=== PATIENT | male | born 1970 | race Caucasian/White ===

== ENCOUNTER 2023-04-09 02:43 | Inpatient (IN) | payer BC, SELFPAY ==
[2023-04-09 02:46] VITALS: BP 180/98; PULSE 78; O2SAT 98
[2023-04-09 02:48] VITALS: BMI 30.1
[2023-04-09 02:55] VITALS: BP 143/77; PULSE 77; RESP 18; TEMP 36.9; O2SAT 97
--- NOTE | 2023-04-09 03:09 | ED.PSYCH ---
HPI - Psych General Chief Complaint: Psychiatric Symptoms Stated Complaint: section 12 Time Seen by Provider: 04/09/23 03:03 Source: patient and EMS Mode of arrival: EMS Limitations: no limitations History of Present Illness HPI Narrative: Patient comes to the emergency room via EMS from home. Patient was Section 12 by a [facility] clinician. Patient is delusional, paranoid, harassing neighbor's. Patient thinks he is in a texting relationship with the police. Patient states that he is going through divorce, states that his needs psychiatric help, patient upset that the chief of the police and his best friend called an ambulance to make him come to the emergency room. Patient denies SI or HI Related Data Allergies Allergy/AdvReac Type Severity Reaction Status Date / Time No Known Allergies Allergy Verified 04/09/23 02:53 Review of Systems Review of Systems: Constitutional : No Weight loss, No Fever, No Chills, No Night Sweats, No Fatigue, No Malaise ENT/Mouth : No Hearing loss, No Ear Pain, No Nasal Congestion, No Sinus Pain, No Hoarseness, No sore throat, No Rhinorrhea, No Swallowing Difficulty Eyes: No Eye Pain, No Swelling, No Redness, No Foreign Body, No Discharge, No Vision Changes Cardiovascular : No Chest Pain, No SOB, No Dyspnea on Exertion, No Orthopnea, No Edema, No Palpitations Respiratory : No Cough, No Sputum, No Wheezing, No Smoke Exposure, No Dyspnea Gastrointestinal : No Nausea, No Vomiting, No Diarrhea, No Constipation, No abdominal Pain, No Hematochezia, No Melena Genitourinary : no irregular bleeding, No Dysuria, No Urinary Frequency, No Hematuria, No Urinary Incontinence, No Urgency, No Flank Pain, No Urinary Flow Changes, No Hesitancy Musculoskeletal : No joint pain, No Myalgias, No Joint Swelling Skin : No Skin Lesions, No rash Neuro : No Weakness, No Numbness, No Paresthesias, No Loss of Consciousness, No Dizziness, No Headache Psych : Feeling a bit anxious, no SI or HI Heme/Lymph: No Bruising, No Bleeding,No Lymphadenopathy Endocrine : No Polyuria, No Polydipsia, No Temperature Intolerance Physical Exam Vital Signs: Vital Signs: Last Vital Signs Temp 98.5 F 04/09/23 02:55 Pulse 77 04/09/23 02:55 Resp 18 04/09/23 02:55 BP 143/77 H 04/09/23 02:55 Pulse Ox 97 04/09/23 02:55 O2 Del Method Room Air 04/09/23 02:55 BMI result Body Mass Index 30.1 Const: Other: Appearance: Alert. Oriented X3. No acute distress. Eyes: Pupils equal, round and reactive to light. ENT: Pharynx normal. Neck: Normal inspection. Neck supple. No lymph nodes noted. No crepitus CVS: Normal heart rate and rhythm. Pulses normal. Normal S1 and S2 Respiratory: No respiratory distress. Breath sounds normal. No Wheezing. No rales Abdomen: Soft and nontender. No rigidity. No distention. Skin: Skin warm and dry. Normal skin color. Normal skin turgor. Extremities: No lower extremity edema. No Lacerations. No Rash Neuro: Oriented X 3. No motor deficit. No sensory deficit. Moving all extremities. No slurred speech. CN 2 through 12 grossly intact Psych: calm, cooperative, hyperverbal, delusional, paranoid, disorganized speech, talking and repeating himself over and over again Course Course Course Narrative: -patient is on a Section 12 -labs pending -care team consult pending -physician observation started at 03:10 Medical Decision Making Differential Diagnosis Differential Diagnoses: The differential diagnosis associated with the presentation includes (Schizophrenia, bipolar disorder, polysubstance abuse) Admission/Observation Consideration of admission/observation: Escalation of care including admission/observation considered (Patient is on a Section 12 waiting for the care team to determine patient's disposition, likely to be admitted) Discharge Plan Discharge Clinical Impression: Paranoid delusion Patient Disposition: Still a Patient Interventions: Millard-Suicide Risk Severity Scale Last Done: 04/09/23 02:56
[2023-04-09 03:20] LABS: Basophils Absolute Auto 0.1 X10*3/uL (0.0-0.2); Basophils Percent Auto 0.6 % (0-2); Eosinophils Absolute Auto 0.1 X10*3/uL (0.0-0.4); Eosinophils Percent Auto 0.9 % (0-4); Hematocrit 45.2 % (42.0-52.0); Hemoglobin 15.3 g/dl (14.0-18.0); Imm Gran Abs Auto 0.02 X10*3/uL (0.00-0.03); Imm Gran Pct Auto 0.2 % (0.0-0.4); Lymphocytes Absolute Auto 2.3 X10*3/uL (1.2-4.9); Lymphocytes Percent Auto 28.5 % (20-40); MANUAL DIFF FLAG NO; Mean Corpuscular HGB Conc 33.8 g/dl (31.0-36.0); Mean Corpuscular Hemoglobin 30.3 pg (27.0-33.0); Mean Corpuscular Volume 89.5 fL (80.0-98.0); Mean Platelet Volume 9.8 fL (9.4-12.4); Monocytes Absolute Auto 0.7 X10*3/uL (0.1-1.2); Monocytes Percent Auto 8.4 % (2-11); Neutrophils Percent Auto 61.4 % (45-73); Platelet Count 230 X10*3/uL (160-400); Red Blood Count 5.05 X10*6/uL (4.60-5.80); Red Cell Distribution Width 12.5 % (11.0-16.0); White Blood Count 8.1 X10*3/uL (4.8-10.8)
--- OUTSIDE RECORDS SUMMARY | 2023-04-09 03:38 | XMS_ITS | Continuity of Care Document ---
Author Name Unknown Organization [facility] Address [address] [place] [address]- Care Team Providers Care Ruby Rails Developer Name Role Phone Ange Cavanaugh MD Primary Care Physician [phone] Encounter [facility] Date(s): 07/25/22 - 08/24/22 [facility] [address] [place] [address]- Allergies, Adverse Reactions, Alerts No Known Medication Allergies Immunizations Given and Recorded Vaccine Date Status Refusal Reason tetanus/diphtheria/pertussis, acel(Tdap) 09/01/17 Given tetanus/diphtheria/pertussis, acel(Tdap) 05/22/14 Given Not Given Vaccine Date Status Refusal Reason pneumococcal 23-valent vaccine 1 07/29/16 Not Give n Patient Refuses 1Result Note: Med was ordered, but patient states he does not want or need. No medical reason for this med. Medications atorvastatin 10 mg oral tablet 1 tablet = 10 mg, By Mouth, Daily, # 30 tablet, 0 Refills, Maintenance, 07/13/21 22:51:00 EDT, Partial fill upon patient request if the prescription is for a schedule II opioid drug. Start Date: 07/13/21 Status: Ordered fenofibrate 54 mg oral tablet 1 tablet = 54 mg, By Mouth, Daily, 0 Refills, Maintenance, 07/28/16 20:48:45 Start Date: 07/28/16 Status: Ordered FLUoxetine (Eqv-Prozac) 10 mg oral tablet 1 tablet = 10 mg, By Mouth, Daily, 0 Refills, Maintenance, 07/13/21 22:50:00 EDT, Partial fill uponpatient request if the prescription is for a schedule II opioid drug. Start Date: 07/13/21 Status: Ordered PROzac 10 mg oral capsule 10 mg, By Mouth, Daily, # 30 capsule, Refills 5, Tot. Refills 5, Maintenance, 08/11/16 10:17:17, Route to Pharmacy Electronically, [id number], [facility]/pharmacy #[id number] Start Date: 08/11/16 Stop Date: 02/07/17 Status: Ordered Problem List Condition Confirmation Course Effective Dates Status Health St atus Informant Obese class I Confirmed Active Social History Social History Type Response Smoking Status Never smoker entered on: 05/22/14 Sex Patient Care team information Care Team Personnel Name: Afshan Cassidy Position: [facility] Outreach Member Role: Lifetime Consulting Physician Name: Casandra Padilla RN Position: [facility] Nurse Member Role: Primary Care Nurse Name: Dorcas Espinoza MA Position: [facility] MA Member Role: Primary Care Nurse Name: Ange Cavanaugh MD Position: [facility] Outreach Member Role: PCP Address: Address: [address] [place] [address] & [place] [address]- Name: Chary Khan RN Position: [facility] Outreach Member Role: Primary Care Nurse Care Team Related Persons Name: SHERICE LOVE Address: home [address] [place] [address]
--- OUTSIDE RECORDS SUMMARY | 2023-04-09 03:38 | XMS_ITS | Continuity of Care Document ---
Author Name Unknown Organization [facility] Address [address] [place] [address]- Care Team Providers Care Calculation Clerk Name Role Phone Ange Cavanaugh MD Primary Care Physician Encounter [facility] Date(s): 07/13/21 - 07/14/[address] [address]- Discharge Disposition: A-D/C Home Attending Physician: Romain Klein DO Admitting Physician: Romain Klein DO Referring Physician: Not on Staff, Referring MD Allergies, Adverse Reactions, Alerts No Known Medication [...] opioid drug. Start Date: 07/13/21 Status: Ordered LORazepam 1 mg oral tablet 1 tablet = 1 mg, By Mouth, 2 times a day, PRN as needed for anxiety, for 7 days, # 10 tablet, 0 Refills, Acute 07/21/21 3:14:00 EDT, 07/14/21 3:14:00 EDT, Tablet, [facility]/pharmacy #[id number], Partial fill upon patient request if the prescription is for a sched... Start Date: 07/14/21 Stop Date: 07/21/21 Status: Ordered PROzac 10 mg oral capsule 10 mg, By Mouth, Daily, # 30 capsule, Refills 5, Tot. Refills 5, Maintenance, 08/11/16 10:17:17, Route to Pharmacy Electronically, [id number], [facility]/pharmacy #[id number] Start Date: 08/11/16 Stop Date: 02/07/17 Status: Ordered Problem List Condition Effective Dates Status Health Status Inform ant Obese class I(Confirmed) Active Vital Signs Most recent to oldest [Reference Range]: 1 2 3 Height 177 cm (07/14/21 3:35 AM) 177 cm (07/13/21 10:15 PM) 177 cm (07/13/21 10:13 PM) Weight 98.2 kg (07/14/21 3:35 AM) 98.2 kg (07/13/21 10:15 PM) 98.2 kg (07/13/21 10:13 PM) Oxygen Saturation [94-100 %] 100 % (07/14/21 3:35 AM) 95 % (07/13/21 10:13 PM) Pulse Rate [55-90 bpm] 63 bpm (07/14/21 3:35 AM) 68 bpm (07/13/21 10:13 PM) Body Mass Index [18.5-24.99] 31.34 *>HHI* (07/14/21 3:35 AM) 31.34 *>HHI* (07/13/21 10:13 PM) Blood Pressure [90-138/55-84 mm Hg] 183/84mm Hg *H* (07/14/21 3:35 AM) 192/86mm Hg *H* (07/13/21 10:13 PM) Respiratory Rate [16-30 br/min] 18 br/min (07/14/21 3:35 AM) 16 br/min (07/13/21 10:13 PM) Temperature [96.8-100.4 DegF] 97.9 DegF (07/14/21 3:35 AM) 98 DegF (07/13/21 10:13 PM) Mode of Delivery (Oxygen) room air (07/14/21 3:35 AM) Room air (07/13/21 10:13 PM) Blood pressure sites Arm, right (07/14/21 3:35 AM) Arm, right (07/13/21 10:13 PM) Temperature Route Oral (07/14/21 3:35 AM) Oral (07/13/21 10:13 PM) Dry Weight 98.2 kg (07/14/21 3:35 AM) 98.2 kg (07/13/21 10:15 PM) 98.2 kg (07/13/21 10:13 PM) Social History Social History Type Response Smoking Status Never smoker entered on: 05/22/14 Sex
[2023-04-09 03:40] LABS: Alanine Aminotransferase 25 U/L (0-40); Albumin Level 4.4 g/dL (3.5-5.0); Alkaline Phosphatase 96 U/L (39-117); Anion Gap 13 (12-20); Aspartate Amino Transferase 19 U/L (5-37); Bilirubin Direct 0.1 mg/dL (0.0-0.5); Bilirubin Total 0.3 mg/dL (0.0-1.0); Blood Urea Nitrogen 25 mg/dL (9-16); Calcium 9.6 mg/dL (8.4-10.2); Carbon Dioxide 27 mmol/L (22-29); Chloride 107 mmol/L (96-108); Creatinine Clr Calc Pharmacy 105.4; Estimated Glomerular Filt Rate > 60; Ethanol < 10 mg/dL; Glucose Random 136 mg/dL (60-115); Potassium 3.9 mmol/L (3.3-5.1); Sodium 143 mmol/L (135-145); Total Protein 7.3 g/dL (6.5-8.0)
[2023-04-09 04:19] LABS: Amphetamine Screen Urine Not Detected (Not Detect); Barbiturates, Urine Not Detected (Not Detect); Benzodiazepines Screen Urine Not Detected (Not Detect); Cannabinoid Screen Urine Not Detected (Not Detect); Cocaine Screen Urine Not Detected (Not Detect); Fentanyl, urine Not Detected (Not Detect); Opiate Screen Urine Not Detected (Not Detect); Phencyclidine Screen Urine Not Detected (Not Detect)
--- NOTE | 2023-04-09 04:54 | PC.NURSE ---
nad 1:1 sitter at bedside. pt resting comfortably in stretcher.
[2023-04-09 06:40] VITALS: BP 163/70; PULSE 58; RESP 17; TEMP 36.7; O2SAT 96
--- NOTE | 2023-04-09 08:27 | PC.NURSE ---
Assumed care of pt from previous RN, pt resting on stretcher. Pt ate breakfast. Pt continues on 1:1 observation.
--- NOTE | 2023-04-09 09:25 | PC.NURSE ---
Called pt's preferred pharmacy ([facility]), per pharmacy staff, pt does not have any prescriptions on file.
[2023-04-09 09:59] VITALS: BP 161/73; PULSE 72; RESP 20; O2SAT 97
--- NOTE | 2023-04-09 12:32 | PC.NURSE ---
patient is in room, inpt psych team in talking with him, has remained calm and cooperative, no signs of distress.
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
--- NOTE | 2023-04-09 14:33 | PC.NURSE ---
patient is resting in bed, appears to be sleeping, respirations equal and unlabored, able to make needs known.
--- NOTE | 2023-04-09 18:56 | PHA.MEDREC ---
Pharmacy Consult ? Medication Reconciliation Pharmacy has reviewed the medication reconciliation completed by Shivani. Mireille Richey, WilD
[2023-04-09 21:00] VITALS: BP 165/88; PULSE 82; RESP 18; TEMP 36.6; O2SAT 98
--- NOTE | 2023-04-09 23:25 | PC.NURSE ---
t/w asked client if he wanted something for sleep, declined.
[2023-04-09 23:32] VITALS: BP 175/84; PULSE 77; RESP 18; TEMP 36.6; O2SAT 99
--- NOTE | 2023-04-09 23:45 | PC.NURSE ---
belongings getting moved to laundry closet
[2023-04-09] MEDS: LORazepam 1 MG TABLET 2 MG PO (23:54)
--- NOTE | 2023-04-09 23:56 | PC.NURSE ---
patient seems guarded when given ativan (reported bp to provider) mentioned previous stay at [facility] and soon to be ex which unclear to t/w if that is true...pending effect.
--- NOTE | 2023-04-10 | ECG_ITS ---
Test Reason : qtc check Blood Pressure : / mmHG Vent. Rate : 071 BPM Atrial Rate : 071 BPM P-R Int : 164 ms QRS Dur : 148 ms QT Int : 416 ms P-R-T Axes : 005 -12 175 degrees QTc Int : 452 ms Normal sinus rhythm Left bundle branch block Abnormal ECG No previous ECGs available Referred By: Vanessa Simeon Electronically Signed By:DOMINIQUE MILLS
--- NOTE | 2023-04-10 07:37 | PC.NURSE ---
pt awake/alert, ambulating with steady gait throughout the unit, breakfast given, tv turned on per pt request, will obtain vitals and medicate when able.
--- NOTE | 2023-04-10 07:54 | PC.NURSE ---
pt is currently refusing medications
--- NOTE | 2023-04-10 07:55 | PC.NURSE ---
pt requesting lorazepam for sleep at night, pt states he takes 0.5mg at home at night
[2023-04-10 08:59] LABS: COVID-19 Test Negative (Negative); IDNOW Serial# 9DB6401D
--- NOTE | 2023-04-10 09:56 | PC.NURSE ---
called pharmacy to verify medications as pt states he is not on hydrochlorothiazide but pharm states pt is on a combo of lisin/hydrochlor tablet. no si/hi reported. talking well.
[2023-04-10 10:05] VITALS: BP 152/76; PULSE 96; RESP 16; TEMP 36.4; O2SAT 97
[2023-04-10] MEDS: hydroCHLOROthiazide 12.5 MG TABLET PO (10:11)
[2023-04-10] MEDS: Atorvastatin Calcium 10 MG TABLET PO (10:11)
[2023-04-10] MEDS: lisinopriL 10 MG TABLET PO (10:11)
--- NOTE | 2023-04-10 10:14 | PC.NURSE ---
pt reminded needs to give a urine sample- pt states he needs po fluids- given additional po fluids,
--- NOTE | 2023-04-10 11:51 | PC.NURSE ---
pt gave urine- sending to lab
[2023-04-10 12:13] LABS: Appearance Urine Clear; Color Urine Yellow; Glucose Urine UA Negative (Negative); Leukocyte Esterase Urine Negative (Negative); Nitrite Urine Negative (Negative); Urine Blood Negative (Negative); Urine Ketones Negative (Negative); Urine Protein Negative (Neg-Trace)
[2023-04-10 12:15] LABS: Bacteria Urine None Seen (None Seen); Hyaline Casts Urine 0-2 /LPF (0-2); RBC Urine 0-2 /HPF (0-2); Squamous Epithelial Cell Urine 0-2 /HPF (0-2); WBC Urine 0-5 /HPF (0-5)
[2023-04-10 12:17] LABS: Amphetamine Screen Urine Not Detected (Not Detect); Barbiturates, Urine Not Detected (Not Detect); Benzodiazepines Screen Urine Not Detected (Not Detect); Cannabinoid Screen Urine Not Detected (Not Detect); Cocaine Screen Urine Not Detected (Not Detect); Fentanyl, urine Not Detected (Not Detect); Opiate Screen Urine Not Detected (Not Detect); Phencyclidine Screen Urine Not Detected (Not Detect)
[2023-04-10 14:00] VITALS: BP 148/82; PULSE 92; RESP 16; TEMP 36.4; O2SAT 97
--- NOTE | 2023-04-10 15:29 | PC.NURSE ---
report given to floor
--- NOTE | 2023-04-10 16:12 | PC.NURSE ---
pt on way up to floor w all belongings- confirmed visually w pt and staff witness has all of shook/cards/wallet; also has laundry basket, backpack, shoes, other belongings
[2023-04-10 16:45] VITALS: BP 159/81; PULSE 88; RESP 15; TEMP 36.6; O2SAT 97
--- NOTE | 2023-04-10 18:01 | PC.NURSE ---
Addendum entered by Penny Garrett RN 04/13/23 10:44: Pt was admitted on 12b - not CV as previously documented. Original Note: Micky was admitted to at 1645 from [facility] Pod on CV for treatment of mood disorder and psychosis. Precipitant of admission include no sleep x 2 weeks, elevated anxiety and paranoid delusions. On arrival to he is alert, oriented to day, date, time and place but not situation. I am here to deescalate. I don't have any problems. Mood is depressed. Affect is anxious, and irritable. He denies hallucinations He is unable to focus on the admission process requiring repeated redirection to answer assessment questions. He does not appear internally preoccupied. However, speech is hyperverbal, tangential, and pressured. He voices paranoid delusional thought content and ideas of reference. He denies ideation, plan or intent to harm self or others. Appetite is good with no recent wt loss or gain. Pt is a never smoker, never used drugs and does not use alcohol per his report. He has already received the flu shot this season. Medical Issues?include hypertension and high cholesterol. BUN is high and RBS is high from ED labs. He denies physical complaint. He was placed on q 5 minute safety Checks per provider order.
[2023-04-10 19:55] VITALS: BP 150/82; PULSE 100; RESP 18; TEMP 36.2; O2SAT 98
[2023-04-10] MEDS: LORazepam 0.5 MG TABLET PO (22:56)
[2023-04-11 07:30] VITALS: BP 140/65; PULSE 87; RESP 18; TEMP 36.6; O2SAT 96
[2023-04-11 07:40] LABS: Alanine Aminotransferase 26 U/L (0-40); Albumin Level 4.3 g/dL (3.5-5.0); Alkaline Phosphatase 91 U/L (39-117); Anion Gap 13 (12-20); Aspartate Amino Transferase 18 U/L (5-37); Bilirubin Total 0.4 mg/dL (0.0-1.0); Blood Urea Nitrogen 16 mg/dL (9-16); Calcium 9.5 mg/dL (8.4-10.2); Carbon Dioxide 27 mmol/L (22-29); Chloride 104 mmol/L (96-108); Cholesterol 137 mg/dL (<200); Creatinine Clr Calc Pharmacy 113.6; Estimated Glomerular Filt Rate > 60; Glucose Fasting 124 mg/dL (60-99); HDL Cholesterol 40 mg/dL (>40); LDL Cholesterol Calculated 62 mg/dL (<100); Potassium 3.9 mmol/L (3.3-5.1); Sodium 140 mmol/L (135-145); Total Protein 7.1 g/dL (6.5-8.0); Triglycerides 178 mg/dL (<150)
[2023-04-11] MEDS: hydroCHLOROthiazide 12.5 MG TABLET PO (08:43)
[2023-04-11] MEDS: Atorvastatin Calcium 10 MG TABLET PO (08:43)
[2023-04-11] MEDS: lisinopriL 10 MG TABLET PO (08:43)
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
[2023-04-11] MEDS: LORazepam 1 MG TABLET PO ×2 (14:36→21:21)
[2023-04-11 19:35] VITALS: BP 130/76; PULSE 89; RESP 16; TEMP 36.6; O2SAT 96
[2023-04-12] MEDS: LORazepam 1 MG TABLET PO ×2 (06:19→23:28)
[2023-04-12 07:15] VITALS: BP 132/69; PULSE 84; RESP 18; TEMP 36.3; O2SAT 98
[2023-04-12] MEDS: lisinopriL 10 MG TABLET PO (08:25)
[2023-04-12] MEDS: Atorvastatin Calcium 10 MG TABLET PO (08:25)
[2023-04-12] MEDS: hydroCHLOROthiazide 12.5 MG TABLET PO (08:26)
--- NOTE | 2023-04-12 14:09 | HO.PSYCHPN ---
Subjective Subjective Date of Service: 04/12/23 Reason For Visit: Crisis Subjective Notes: Section 12B Interim History: Pt slept from 21:30 to 4:30am with ativan. Pt continues to report he does not need psychiatric treatment and does not see how his behavior including helping neighbor or recent financial decisions are concerning to others. He continues to decline mood stabilizer or antipsychotic. Review of Systems Review of Systems Constitutional : No Weight loss, No Fever, No Chills, No Night Sweats, No Fatigue, No Malaise ENT/Mouth : No Hearing loss, No Ear Pain, No Nasal Congestion, No Sinus Pain, No Hoarseness, No sore throat, No Rhinorrhea, No Swallowing Difficulty Eyes: No Eye Pain, No Swelling, No Redness, No Foreign Body, No Discharge, No Vision Changes Cardiovascular : No Chest Pain, No SOB, No Dyspnea on Exertion, No Orthopnea, No Edema, No Palpitations Respiratory : No Cough, No Sputum, No Wheezing, No Smoke Exposure, No Dyspnea Gastrointestinal : No Nausea, No Vomiting, No Diarrhea, No Constipation, No abdominal Pain, No Hematochezia, No Melena Genitourinary : no irregular bleeding, No Dysuria, No Urinary Frequency, No Hematuria, No Urinary Incontinence, No Urgency, No Flank Pain, No Urinary Flow Changes, No Hesitancy Musculoskeletal : No joint pain, No Myalgias, No Joint Swelling Skin : No Skin Lesions, No rash Neuro : No Weakness, No Numbness, No Paresthesias, No Loss of Consciousness, No Dizziness, No Headache Psych : Feeling a bit anxious, no SI or HI Heme/Lymph: No Bruising, No Bleeding,No Lymphadenopathy Endocrine : No Polyuria, No Polydipsia, No Temperature Intolerance Mental Status Exam Mental Status Exam Narrative: Appearance: wearing casual clothing, good hygiene, in NAD Behavior: guarded, especially when others not agreeing with him Psychomotor: no agitation or retardation noted Speech: hyperverbal, pressured at times, spontaneous TP: disorganized at times difficult to follow TC: wanting to get a divorce and help others Mood: good Affect: expansive SI: denies HI: none VH/AH: none Delusions: more sense of him helping others without insight that he is coming across as intrusive, some paranoid ideas Insight/judgment: impaired x2. memory/cog: alert, oriented x 3. Diagnostics Vital Signs (24Hr): Vital Signs - 24 hr 01/20/24 19:35 04/12/23 07:15 Temperature 97.8 F 97.4 F Pulse Rate 89 84 Respiratory Rate 16 18 Blood Pressure 130/76 132/69 Pulse Oximetry 96 98 Oxygen Delivery Method Room Air Room Air BMI result Body Mass Index 30.1 Labs 04/09/23 03:14 04/11/23 07:13 Labs: Laboratory Results - last 48 hr 04/11/23 07:13 Sodium 140 Potassium 3.9 Chloride 104 Carbon Dioxide 27 Anion Gap 13 BUN 16 Creatinine 0.89 Estim Creat Clear Calc 113.6 Estimated GFR > 60 Fasting Glucose 124 H Calcium 9.5 Total Bilirubin 0.4 AST 18 ALT 26 Alkaline Phosphatase 91 Total Protein 7.1 Albumin 4.3 Triglycerides 178 H Cholesterol 137 LDL Cholesterol, Calc 62 HDL Cholesterol 40 L Medications Medications Current Medications Acetaminophen (Acetaminophen 325 Mg Tablet) 650 mg PO Q6H PRN PRN Reason: Headache/Pain Mild Scale (1-3) Al Hydroxide/Mg Hydroxide (Magnesium Hydrox/Alum Hydrox 30 Ml Oral.Susp) 30 ml PO Q6H PRN PRN Reason: Heartburn/Nausea Atorvastatin Calcium (Atorvastatin Calcium 10 Mg Tablet) 10 mg PO DAILY [facility] Last Admin: 04/12/23 08:25 Dose: 10 mg Hydrochlorothiazide (Hydrochlorothiazide 12.5 Mg Tablet) 12.5 mg PO DAILY [facility]; Protocol Last Admin: 04/12/23 08:26 Dose: 12.5 mg Hydroxyzine HCl (Hydroxyzine Hcl 25 Mg Tablet) 25 mg PO Q6H PRN PRN Reason: Anxiety Lisinopril (Lisinopril 10 Mg Tablet) 10 mg PO DAILY [facility]; Protocol Last Admin: 04/12/23 08:25 Dose: 10 mg Lorazepam (Lorazepam 1 Mg Tablet) 1 mg PO Q6H PRN PRN Reason: anxiety/restlessness Last Admin: 04/12/23 06:19 Dose: 1 mg Magnesium Hydroxide (Milk Of Magnesia 30 Ml Oral.Susp) 30 ml PO DAILY PRN PRN Reason: Constipation Nicotine (Nicotine 21 Mg Patch.Td24) 21 mg TRANSDERMA DAILY [facility] Last Admin: 04/12/23 08:28 Dose: Not Given Nicotine Polacrilex (Nicotine Polacrilex 2 Mg Gum) 4 mg BUCCAL Q2H PRN PRN Reason: Nicotine Cravings Olanzapine (Olanzapine 5 Mg Tablet) 5 mg PO Q4H PRN PRN Reason: Psychosis Trazodone HCl (Trazodone Hcl 50 Mg Tablet) 50 mg PO BEDTIME MRX1 PRN PRN Reason: Insomnia Allergies Allergies Allergy/AdvReac Type Severity Reaction Status Date / Time No Known Allergies Allergy Verified 04/09/23 02:53 Assessment & Plan Assessment & Plan (1) Bipolar disorder with severe maryann: Status: Acute Code(s): F31.13 - Bipolar disorder, current episode manic without psychotic features, severe Plan Mr. Norton is a 52 year-old male with hx of Bipolar Disorder who was brought in after assessment by [facility] in the community. Pt presents as hyperverbal, increase reckless financial decisions, intrusive behaviors which pt perceives as helping others and some paranoia and decreased sleep. Utox is negative. No insight into symptoms or need for psychotropic medications (combination of mood stabilizer and antipsychotic). PLAN 1. continue tx. sect 12b Reason for continued inpatient stay Substantial Risk for: inability to function Time Spent With Patient Time: Total time managing care of this patient today ____ minutes.
[2023-04-12 19:40] VITALS: BP 145/68; PULSE 90; RESP 18; TEMP 36.6; O2SAT 97
[2023-04-13 07:20] VITALS: BP 142/74; PULSE 87; RESP 16; TEMP 36.2; O2SAT 98
[2023-04-13] MEDS: Atorvastatin Calcium 10 MG TABLET PO (08:08)
[2023-04-13] MEDS: hydroCHLOROthiazide 12.5 MG TABLET PO (08:09)
[2023-04-13] MEDS: lisinopriL 10 MG TABLET PO (08:09)
--- NOTE | 2023-04-13 09:27 | HO.PSYCHPN ---
Subjective Subjective Date of Service: 04/13/23 Reason For Visit: Crisis Subjective Notes: Section 12B Interim History: Reviewed with . Keeping to self. Listening to music with unit headphones. Guarded. Circumstantial. Pt reports feeling good today; pt stated, I know people were concerned about me because I wasn't sleeping and sending text messages. I don't think I have bipolar d/o or a mental illness. I have sleep depravation. I know how to meditate. I take some Ativan and I'm fine . Pt reports he is not interested in taking any psychiatric medications or having a therapist . He states not wanting anyone to talk to my parents or because you guys don't need to connect with anyone . Pt denies SI/HI/VH/AH. Pt stated, I just want to help people not hurt them . Per staff, pt slept about six hours each night he has been inpatient. Attending Groups: Intermittent Review of Systems Constitutional: Reports as per HPI Eyes: Reports as per HPI Reports as per HPI Cardiovascular: Reports as per HPI Respiratory: Reports as per HPI Gastrointestinal: Reports as per HPI Genitourinary: Reports as per HPI Musculoskeletal: Reports as per HPI Skin/Breast: Reports as per HPI Reports as per HPI Psychiatric: Reports as per HPI Endocrine: Reports as per HPI Hematologic/Lymphatic: Reports as per HPI Allergic/Immunologic: Reports as per HPI Mental Status Exam Mental Status Exam Narrative: Pt is alert and oriented; behavior is calm and guarded; dressed in casual attire; mood is described as good ; eye contact appropriate; Speech is rapid; circumstantial, focused on discharge. denies SI/HI/VH/AH. Poor insight and judgment into his mental illness. Diagnostics Vital Signs (24Hr): Vital Signs - 24 hr 04/12/23 19:40 04/13/23 07:20 Temperature 97.9 F 97.2 F Pulse Rate 90 87 Respiratory Rate 18 16 Blood Pressure 145/68 H 142/74 H Pulse Oximetry 97 98 Oxygen Delivery Method Room Air Room Air BMI result Body Mass Index 30.1 Labs 04/09/23 03:14 04/11/23 07:13 Medications Medications Current Medications Acetaminophen (Acetaminophen 325 Mg Tablet) 650 mg PO Q6H PRN PRN Reason: Headache/Pain Mild Scale (1-3) Al Hydroxide/Mg Hydroxide (Magnesium Hydrox/Alum Hydrox 30 Ml Oral.Susp) 30 ml PO Q6H PRN PRN Reason: Heartburn/Nausea Atorvastatin Calcium (Atorvastatin Calcium 10 Mg Tablet) 10 mg PO DAILY [facility] Last Admin: 04/13/23 08:08 Dose: 10 mg Hydrochlorothiazide (Hydrochlorothiazide 12.5 Mg Tablet) 12.5 mg PO DAILY [facility]; Protocol Last Admin: 04/13/23 08:09 Dose: 12.5 mg Hydroxyzine HCl (Hydroxyzine Hcl 25 Mg Tablet) 25 mg PO Q6H PRN PRN Reason: Anxiety Lisinopril (Lisinopril 10 Mg Tablet) 10 mg PO DAILY [facility]; Protocol Last Admin: 04/13/23 08:09 Dose: 10 mg Lorazepam (Lorazepam 1 Mg Tablet) 1 mg PO Q6H PRN PRN Reason: anxiety/restlessness Last Admin: 04/12/23 23:28 Dose: 1 mg Magnesium Hydroxide (Milk Of Magnesia 30 Ml Oral.Susp) 30 ml PO DAILY PRN PRN Reason: Constipation Nicotine (Nicotine 21 Mg Patch.Td24) 21 mg TRANSDERMA DAILY [facility] Last Admin: 04/13/23 08:13 Dose: Not Given Nicotine Polacrilex (Nicotine Polacrilex 2 Mg Gum) 4 mg BUCCAL Q2H PRN PRN Reason: Nicotine Cravings Olanzapine (Olanzapine 5 Mg Tablet) 5 mg PO Q4H PRN PRN Reason: Psychosis Trazodone HCl (Trazodone Hcl 50 Mg Tablet) 50 mg PO BEDTIME MRX1 PRN PRN Reason: Insomnia Allergies Allergies Allergy/AdvReac Type Severity Reaction Status Date / Time No Known Allergies Allergy Verified 04/09/23 02:53 Assessment & Plan Assessment & Plan (1) Bipolar disorder with severe maryann: Status: Acute Code(s): F31.13 - Bipolar disorder, current episode manic without psychotic features, severe Plan Mr. Norton is a 52 year-old male with hx of Bipolar Disorder who was brought in after assessment by [facility] in the community. Pt presents as hyperverbal, increase reckless financial decisions, intrusive behaviors which pt perceives as helping others and some paranoia and decreased sleep. Utox is negative. No insight into symptoms or need for psychotropic medications (combination of mood stabilizer and antipsychotic). PLAN 1. continue tx. sect 12b 04/13: Keeping to self. Listening to music with unit headphones. Guarded. Circumstantial. Pt reports feeling good today; pt stated, I know people were concerned about me because I wasn't sleeping and sending text messages. I don't think I have bipolar d/o or a mental illness. I have sleep depravation. I know how to meditate. I take some Ativan and I'm fine . Pt reports he is not interested in taking any psychiatric medications or having a therapist . He states not wanting anyone to talk to my parents or because you guys don't need to connect with anyone . Pt denies SI/HI/VH/AH. Pt stated, I just want to help people not hurt them . Per staff, pt slept about six hours each night he has been inpatient. Patient educated on: diagnosis and medication risk/benefits Informed Consent: understands Reason for continued inpatient stay Substantial Risk for: med/psych decompensation Time Spent With Patient Time: Total time managing care of this patient today _30___ minutes.
[2023-04-13 20:00] VITALS: BP 165/77; PULSE 95; RESP 14; TEMP 36.7; O2SAT 97
[2023-04-14] MEDS: LORazepam 1 MG TABLET PO ×3 (02:44→20:29)
[2023-04-14] MEDS: lisinopriL 10 MG TABLET PO (08:23)
[2023-04-14] MEDS: hydroCHLOROthiazide 12.5 MG TABLET PO (08:23)
[2023-04-14] MEDS: Atorvastatin Calcium 10 MG TABLET PO (08:23)
--- NOTE | 2023-04-14 09:16 | P.PNPSI_ITS ---
Subjective Subjective Date of Service: 04/14/23 Reason For Visit: Crisis Subjective Notes: Section 12B Interim History: Reviewed with . Social with peers, attending groups. Presents calm with slower speech today, not as pressured. Pt stated, I feel a little more comfortable here. I don't feel like I need medicine right now. I need a peaceful environment. I plan on getting a divorce from my ; I've already spoken to my coordinate measuring machine technician . T/W discussed starting a mood stabilizer;risks/benefits reviewed. pt stated, I want to make the decision in the morning of if I'll stay and take meds or if I'm going to leave . pt denies SI/HI/VH/AH. Medication Compliance: Yes Side effects from medications: No Attending Groups: Yes Review of Systems Constitutional: Reports as per HPI Eyes: Reports as per HPI Reports as per HPI Cardiovascular: Reports as per HPI Respiratory: Reports as per HPI Gastrointestinal: Reports as per HPI Genitourinary: Reports as per HPI Musculoskeletal: Reports as per HPI Skin/Breast: Reports as per HPI Reports as per HPI Psychiatric: Reports as per HPI Endocrine: Reports as per HPI Hematologic/Lymphatic: Reports as per HPI Allergic/Immunologic: Reports as per HPI Mental Status Exam Mental Status Exam Narrative: Pt is alert and oriented; behavior is calm,guarded; dressed in casual attire; mood is described as good ; eye contact appropriate; Speech is normal rate, volume. talkative; focused on discharged; denies SI/HI/VH/AH. Poor insight and judgment into his mental illness. Diagnostics Vital Signs (24Hr): Vital Signs - 24 hr 04/13/23 20:00 Temperature 98.1 F Pulse Rate 95 Respiratory Rate 14 Blood Pressure 165/77 H Pulse Oximetry 97 Oxygen Delivery Method Room Air BMI result Body Mass Index 30.1 Labs 04/09/23 03:14 04/11/23 07:13 Medications Medications Current Medications Acetaminophen (Acetaminophen 325 Mg Tablet) 650 mg PO Q6H PRN PRN Reason: Headache/Pain Mild Scale (1-3) Al Hydroxide/Mg Hydroxide (Magnesium Hydrox/Alum Hydrox 30 Ml Oral.Susp) 30 ml PO Q6H PRN PRN Reason: Heartburn/Nausea Atorvastatin Calcium (Atorvastatin Calcium 10 Mg Tablet) 10 mg PO DAILY [facility] Last Admin: 04/14/23 08:23 Dose: 10 mg Hydrochlorothiazide (Hydrochlorothiazide 12.5 Mg Tablet) 12.5 mg PO DAILY [facility]; Protocol Last Admin: 04/14/23 08:23 Dose: 12.5 mg Hydroxyzine HCl (Hydroxyzine Hcl 25 Mg Tablet) 25 mg PO Q6H PRN PRN Reason: Anxiety Lisinopril (Lisinopril 10 Mg Tablet) 10 mg PO DAILY [facility]; Protocol Last Admin: 04/14/23 08:23 Dose: 10 mg Lorazepam (Lorazepam 1 Mg Tablet) 1 mg PO Q6H PRN PRN Reason: anxiety/restlessness Last Admin: 04/14/23 02:44 Dose: 1 mg Magnesium Hydroxide (Milk Of Magnesia 30 Ml Oral.Susp) 30 ml PO DAILY PRN PRN Reason: Constipation Nicotine (Nicotine 21 Mg Patch.Td24) 21 mg TRANSDERMA DAILY [facility] Last Admin: 04/14/23 08:25 Dose: Not Given Nicotine Polacrilex (Nicotine Polacrilex 2 Mg Gum) 4 mg BUCCAL Q2H PRN PRN Reason: Nicotine Cravings Olanzapine (Olanzapine 5 Mg Tablet) 5 mg PO Q4H PRN PRN Reason: Psychosis Trazodone HCl (Trazodone Hcl 50 Mg Tablet) 50 mg PO BEDTIME MRX1 PRN PRN Reason: Insomnia Allergies Allergies Allergy/AdvReac Type Severity Reaction Status Date / Time No Known Allergies Allergy Verified 04/09/23 02:53 Assessment & Plan Assessment & Plan (1) Bipolar disorder with severe maryann: Status: Acute Code(s): F31.13 - Bipolar disorder, current episode manic without psychotic features, severe Plan Mr. Norton is a 52 year-old male with hx of Bipolar Disorder who was brought in after assessment by [facility] in the community. Pt presents as hyperverbal, increase reckless financial decisions, intrusive behaviors which pt perceives as helping others and some paranoia and decreased sleep. Utox is negative. No insight into symptoms or need for psychotropic medications (combination of mood stabilizer and antipsychotic). PLAN 1. continue tx. sect 12b 04/13: Keeping to self. Listening to music with unit headphones. Guarded. Circumstantial. Pt reports feeling good today; pt stated, I know people were concerned about me because I wasn't sleeping and sending text messages. I don't think I have bipolar d/o or a mental illness. I have sleep depravation. I know how to meditate. I take some Ativan and I'm fine . Pt reports he is not interested in taking any psychiatric medications or having a therapist . He states not wanting anyone to talk to my parents or because you guys don't need to connect with anyone . Pt denies SI/HI/VH/AH. Pt stated, I just want to help people not hurt them . Per staff, pt slept about six hours each night he has been inpatient. 04/14: Social with peers, attending groups. Presents calm with slower speech today, not as pressured. Pt stated, I feel a little more comfortable here. I don't feel like I need medicine right now. I need a peaceful environment. I plan on getting a divorce from my ; I've already spoken to my coordinate measuring machine technician . T/W discussed starting a mood stabilizer;risks/benefits reviewed. pt stated, I want to make the decision in the morning of if I'll stay and take meds or if I'm going to leave . pt denies SI/HI/VH/AH. Patient educated on: diagnosis, medication risk/benefits and therapeutic strategies Informed Consent: understands Reason for continued inpatient stay Substantial Risk for: med/psych decompensation Time Spent With Patient Time: Total time managing care of this patient today _30___ minutes.
[2023-04-14 09:39] VITALS: BP 158/72; PULSE 88; RESP 18; TEMP 36.4; O2SAT 98
[2023-04-14 19:20] VITALS: BP 158/72; PULSE 94; RESP 20; TEMP 36.7; O2SAT 97
[2023-04-15 06:00] VITALS: BP 170/83; PULSE 85; RESP 16; TEMP 36.8; O2SAT 98
[2023-04-15] MEDS: Atorvastatin Calcium 10 MG TABLET PO (08:03)
[2023-04-15] MEDS: lisinopriL 10 MG TABLET PO (08:03)
[2023-04-15] MEDS: hydroCHLOROthiazide 12.5 MG TABLET PO (08:04)
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
[2023-04-15] MEDS: LORazepam 1 MG TABLET PO (11:03)
== END 2023-04-15 11:59 | disposition home or self-care (01) | DRG 753 ==
LOC: HO.ED 10:55 → HO.PADLT16 04-10 15:54
PROVIDERS: Emergency Medicine; Admitting Provider Registered Nurse; Emergency Provider Emergency Medicine; PCP Internal Medicine; Responsible Provider Registered Nurse; Visit Provider Psychiatry & Neurology Psychiatry
DX: F31.13 Bipolar disorder, current episode manic without psychotic features, severe (principal); Z20.822 Contact with and (suspected) exposure to COVID-19; Z79.899 Other long term (current) drug therapy
CPT/HCPCS: 36415; 80053; 80061; 80307; 81001; 82248; 85025; 87635; 93005; 99285; S9485

== ENCOUNTER → 2023-04-10 08:52 | Outpatient (BNV) | payer BC, SELFPAY | PROVIDERS: Emergency Provider Emergency Medicine; PCP Internal Medicine; Visit Provider Internal Medicine | DX: R94.31 Abnormal electrocardiogram [ECG] [EKG] (principal) | CPT/HCPCS: 93010 ==

== ENCOUNTER → 2023-04-10 15:39 | Outpatient (BNV) | payer BC, SELFPAY | PROVIDERS: Admitting Provider Registered Nurse; Emergency Provider Emergency Medicine; PCP Internal Medicine; Visit Provider Social Worker | DX: F31.13 Bipolar disorder, current episode manic without psychotic features, severe (principal) | CPT/HCPCS: 90792; 99222; 99231; 99232; 99238 ==